=== PATIENT | female | born 1995 ===

== ENCOUNTER → 2020-06-29 | Outpatient (CLI) | payer OTHER ==
[2020-07-01 20:16] LABS: SOURCE: CERVICAL/ENDOCERVIX; TEST ORDERED: PAP LIQ-BASED
== END | disposition home or self-care (01) ==
LOC: LAB SHORT 20:01 → LAB 20:01
PROVIDERS: Student in an Organized Health Care Education/Training Program
DX: Z01.419 Encounter for gynecological examination (general) (routine) without abnormal findings (principal)
CPT/HCPCS: G0145